=== PATIENT | male | born 1960 | race Caucasian/White ===

== ENCOUNTER → 2021-07-23 14:44 | Outpatient (BNVA) | payer OTHER, SELFPAY | PROVIDERS: PCP Emergency Medicine; Referring Provider Emergency Medicine; Visit Provider Surgery | DX: K40.90 Unilateral inguinal hernia, without obstruction or gangrene, not specified as recurrent (principal) | CPT/HCPCS: 99202 ==

== ENCOUNTER 2021-07-31 08:51 | Day surgery (SDC) | payer OTHER, SELFPAY ==
[2021-07-31] VITALS (8 sets, daily range): BP systolic 108–121; BP diastolic 56–75; PULSE 64–81; RESP 16–18; TEMP 36.1–36.4; O2SAT 97–100; BMI 28.5
[2021-07-31] MEDS: Lactated Ringers 1,000 ML 100 ML IVCONT (09:31)
--- NOTE | 2021-07-31 10:00 | P.CONAN_ITS ---
PMFSH Active Problems Active Problems: All Active Problems (Updated 07/24/21 @ 12:03 by Jose Roberto fleming MD) Left inguinal hernia (Acute) Family History Family History Father Cancer of unknown origin Surgical History Surgical History History of umbilical hernia repair Social History Social History Alcohol intake: never Patient Tobacco Use Status: Never used Tobacco Second Hand Smoke Exposure: No Use of substances other than those prescribed or required for medical reasons: No Are you DNR?: No Advance Directives: No Advance Directives Information Provided: Yes Advance Directives on File: No Meds Allergies Allergy/AdvReac Type Severity Reaction Status Date / Time No Known Allergies Allergy Verified 07/23/21 15:13 Active Medications: Current Medications Generic Name Dose Route Start Last Admin Trade Name Ray PRN Reason Stop Dose Admin Lactated Ringer's 1,000 mls @ 100 mls/hr 07/31/21 09:00 07/31/21 09:31 Lr IVCONT 100 mls/hr .Q10H DALTON Administration Home Medications Medication Instructions Recorded Confirmed Last Taken Type No Known Home Meds 07/23/21 07/23/21 Unknown History Exam Exam Date and Time: July 31, 2021 1000 Height,Weight and Vital Signs: Height 5 ft 7 in Weight 82.554 kg Last Vital Signs Temp 97.0 F 07/31/21 09:21 Pulse 64 07/31/21 09:21 Resp 16 07/31/21 09:21 BP 112/75 07/31/21 09:21 Pulse Ox 98 07/31/21 09:21 Airway Mallampati Class: II TM Dist: >3cm Neck ROM: Full Partial: Upper
--- NOTE | 2021-07-31 10:05 | MHC.SHP ---
Pre-Procedural Eval Section A Date of Service: 07/31/21 The patient is an INPATIENT: No Changes since office visit: Yes Patient answered all questions; No Cold of Flu in the past 2 weeks, No New Medical Problems and No Changes in Medication The History & Physical has been completed within 30 days and I have reviewed it.: Yes Section B Chief Complaint: Left Inguinal Hernia Allergies: Allergies Allergy/AdvReac Type Severity Reaction Status Date / Time No Known Allergies Allergy Verified 07/23/21 15:13 Plan Diagnosis/Plan: Unchanged I have reviewed the history and physical and performed a pertinent physical examination on my patient. No changes have occurred unless specified.
--- NOTE | 2021-07-31 11:08 | W.PM.OPN ---
Operative Note Operative Note Date of Service: 07/31/21 Narrative: Preoperative diagnosis: Left inguinal hernia Postoperative diagnosis: Same Procedure: Repair of left inguinal hernia with mesh Surgeon: Jose Roberto Grider MD Lead Generation Specialist: Luba Ruth PA-C Anesthesia: General LMA Indications for procedure: 60-year-old male patient presenting with a palpable hernia in the left groin which increases in size with Valsalva maneuvers and reduces with light pressure. Operative findings: Direct left inguinal hernia repaired with an extended large PHS mesh Specimen: None Estimated blood loss: 2 mL Complications: None Procedure details: Patient was brought to the OR and placed in a supine position. After administering general anesthesia, the abdomen was prepped with ChloraPrep and draped in a sterile fashion. A surgical time-out was called the consent confirmed. Patient received preoperative antibiotics and Venodyne boots were in place. Local anesthesia consisting of 0.5% Sensorcaine with epinephrine was then infiltrated over the left inguinal ligament. Incision was then made with a 15 blade and carried out through subcutaneous tissue, past Sri's fascia, up to the external oblique aponeurosis. Additional local was infiltrated below the external oblique aponeurosis. This was then incised with a scalpel wide with the Metzenbaum scissors. The spermatic cord was then dissected free from the surrounding inguinal canal. This was then retracted using a [place] drain. Examination of the floor of the inguinal canal revealed an obvious large direct hernia. Fibers of the cremasteric muscle were then and the cord examined for an indirect hernia. No indirect hernia could be identified. Attention was then directed to the direct hernia. Fibers of the transversalis and internal oblique aponeurosis were then divided with electrocautery. Preperitoneal fat was then dissected free from the sac. A preperitoneal space was then created using an open Ray-Leilani sponge. A large extended PHS mesh was then obtained. The circular underlay was then deployed into the preperitoneal space. The overlay was then secured to the pubic tubercle, shelving edge of the inguinal ligament, and conjoined tendon using 0 Polysorb sutures. A slit was made in the mesh in the mesh wrapped around the spermatic cord at the internal ring. This was then secured to the shelving edge of the inguinal ligament. The internal ring was found to be very loose therefore a 2nd stitch was placed to tighten the internal ring to allow the tip of the index finger to pass. Wounds were then irrigated and suctioned dry. Wounds were checked for hemostasis. External oblique aponeurosis was then reapproximated using a running 2 0 Polysorb suture. Sri's fascia and dermis were then reapproximated using interrupted 3-0 Polysorb sutures. Skin was then closed using a running subcuticular 4-0 Polysorb suture. Steri-Strips 2 x 2 gauze and Tegaderm were then applied. The patient tolerated the procedure well. Sponge, instrument, and needle counts were reported as correct. Patient was transferred to PACU in stable condition.
== END 2021-07-31 13:12 | disposition home or self-care (01) ==
PROVIDERS: Visit Provider Surgery
PROC: (CPT 49505; principal; 2021-07-31 10:10)
DX: K40.90 Unilateral inguinal hernia, without obstruction or gangrene, not specified as recurrent (principal)
CPT/HCPCS: 49505; C1781; J0690; J1100; J2250; J2405; J3010

== ENCOUNTER → 2021-08-08 09:18 | Outpatient (BNVA) | payer OTHER, SELFPAY | PROVIDERS: Visit Provider Surgery | DX: K40.90 Unilateral inguinal hernia, without obstruction or gangrene, not specified as recurrent (principal) | CPT/HCPCS: 99212 ==

== ENCOUNTER → 2021-09-10 14:50 | Outpatient (BNVA) | payer OTHER, SELFPAY | PROVIDERS: PCP Family Medicine; Referring Provider Family Medicine; Visit Provider Surgery | DX: Z48.815 Encounter for surgical aftercare following surgery on the digestive system (principal); Z87.19 Personal history of other diseases of the digestive system | CPT/HCPCS: 99212 ==